=== PATIENT | male | born 1990 | race Caucasian/White ===

== ENCOUNTER 2019-02-02 18:05 | Observation (INO) | payer SELFPAY ==
[2019-02-02 18:54] LABS: Absolute Lymphocytes (CBC) 2.6 K/uL (0.7-4.9); Basophils % 0.5 % (0-1.3); Hematocrit 47.6 % (39.6-49.0); Lymphocytes % 20.3 % (15.3-44.8); MPV 10.4 fL (7.6-11.3)
[2019-02-02 19:02] LABS: Protime INR 1.17
[2019-02-02] MEDS ORDERED: ASPIRIN 81 MG CHEWABLE TABLET ONE (19:11)
[2019-02-02] MEDS ORDERED: NA CHLORIDE 0.9% 1,000 ML ONE (19:11)
[2019-02-02 19:14] LABS: ALT/SGPT 39 U/L (12-78); AST/SGOT 25 U/L (15-37); Albumin 4.7 g/dL (3.4-5.0); Alkaline Phosphatase 87 U/L (45-117); BUN Blood Urea Nitrogen 13 mg/dL (7-18); Bicarbonate 24 mmol/L (21-32); Bilirubin Direct 0.2 mg/dL (0-0.2); Bilirubin Total 0.7 mg/dL (0.2-1.0); Glucose Level 99 mg/dL (74-106); Magnesium 2.3 mg/dL (1.8-2.4); NT PRO-BNP 17 pg/mL (<125); Potassium 3.5 mmol/L (3.5-5.1); Protein, Total 8.8 g/dL (6.4-8.2); Sodium Level 140 mmol/L (136-145); Troponin (Emerg Dept Use Only) < 0.02 ng/mL (0.0-0.045)
--- NOTE | 2019-02-02 19:58 | RAD REPORT ---
EXAM DESCRIPTION: RAD - Chest Single View - 02/02/2019 7:02 pm CLINICAL HISTORY: Chest pain COMPARISON: None. TECHNIQUE: AP portable chest image was obtained 1848 hours . FINDINGS: Lungs are clear. Heart and vasculature are normal. No measurable pleural effusion and no p neumothorax. No acute bony abnormality seen. No acute aortic findings suspected. IMPRESSION: No acute cardiopulmonary process.
--- NOTE | 2019-02-02 20:58 | ER ---
Nurse's Notes [facility] Name: Caden Fenton Age: 28 yrs Sex: Male : 1990 Arrival Date: 02/02/2019 Time: 18:09 Bed 13 Private MD: Diagnosis: Chest pain, unspecified;Syncope and collapse Presentation: 02/02 18:10 Presenting complaint: Patient states: "I've been getting sharp chest pains, labored aj1 breathing, my finger tips feel tingly. I've collapsed twice. I don't know if its stress, but my family has a history of heart disease. My dad was my age when he found out he had a blockage in his heart" Reports that both times he had syncopal episodes he had palpitations, then got dizzy and passed out. Transition of care: patient was not received from another setting of care. Onset of symptoms was 2018. Risk Assessment: Do you want to hurt yourself or someone else? Patient reports no desire to harm self or others. Initial Sepsis Screen: Does the patient meet any 2 criteria? No. Patient's initial sepsis screen is negative. Does the patient have a suspected source of infection? No. Patient's initial sepsis screen is negative. Care prior to arrival: None. 18:10 Method Of Arrival: Ambulatory aj1 18:10 Acuity: ELIE 2 aj1 Triage Assessment: 18:13 General: Appears in no apparent distress. comfortable, Behavior is calm, cooperative, aj1 appropriate for age. Pain: Complains of pain in chest. Pain: Pain currently is 4 out of 10 on a pain scale. Neuro: Level of Consciousness is awake, alert, obeys commands. Cardiovascular: Patient's skin is warm and dry. Respiratory: Airway is patent Respiratory effort is even, unlabored, Respiratory pattern is regular, symmetrical. Historical: - Allergies: 18:13 No Known Allergies; aj1 - Home Meds: 18:13 None [Active]; aj1 - PMHx: 18:13 None; aj1 - PSHx: 18:13 None; aj1 - Immunization history:: Flu vaccine is not up to date. - Social history:: Smoking status: Patient/guardian denies using tobacco. - Ebola Screening: : No symptoms or risks identified at this time. Screenin:12 Abuse screen: Denies threats or abuse. Denies injuries from another. Nutritional ph screening: No deficits noted. Tuberculosis screening: No symptoms or risk factors identified. Fall Risk None identified. Assessment: 18:30 General: Appears in no apparent distress. comfortable, Behavior is cooperative, ph appropriate for age, anxious. Pain: Complains of pain in anterior aspect of left upper chest Pain does not radiate. Quality of pain is described as sharp. Neuro: Level of Consciousness is awake, alert, obeys commands, Oriented to person, place, time, situation, Reports dizziness, paresthesias in fingertips. Cardiovascular: Reports chest pain, lightheadedness, syncope, Capillary refill < 3 seconds in bilateral fingers Patient's skin is warm and dry. Respiratory: Airway is patent Respiratory effort is even, unlabored, Respiratory pattern is regular, symmetrical. Derm: Skin is intact, is healthy with good turgor, Skin is pink, warm \\T\\ dry. 19:30 General: Appears in no apparent distress. comfortable, Behavior is anxious. Pain: ea Denies pain. Neuro: Level of Consciousness is awake, alert, obeys commands, Oriented to person, place, time, situation. Neuro: Level of Consciousness is awake, alert, obeys commands, Oriented to person, place, time, situation. Cardiovascular: Patient's skin is warm and dry. Respiratory: Airway is patent Respiratory effort is even, unlabored, Respiratory pattern is regular, symmetrical. Derm: Skin is pink, warm \\T\\ dry. 20:43 Reassessment: Patient and/or family updated on plan of care and expected duration. Pain ea level reassessed. Patient is alert, oriented x 3, equal unlabored respirations, skin warm/dry/pink. 21:00 Reassessment: Patient and/or family updated on plan of care and expected duration. Pain ea level reassessed. Patient is alert, oriented x 3, equal unlabored respirations, skin warm/dry/pink. 23:20 Reassessment: Patient and/or family updated on plan of care and expected duration. Pain ea level reassessed. Patient is alert, oriented x 3, equal unlabored respirations, skin warm/dry/pink. Pt admitted, left ED via wheelchair per communications field technician. Pt tolerating well. Vital Signs: 18:13 BP 153 / 91; Pulse 101; Resp 20; Temp 98.7; Pulse Ox 97% on R/A; Weight 97.52 kg (R); aj1 Height 5 ft. 7 in. (170.18 cm) (R); Pain 4/10; 19:18 BP 130 / 78; Pulse 74; Resp 18; Pulse Ox 100% on R/A; ea 20:00 BP 126 / 81; Pulse 75; Resp 18; Pulse Ox 100% ; ea 21:30 BP 116 / 81; Pulse 63; Resp 18; Pulse Ox 98% on R/A; ea 22:15 BP 161 / 90; Pulse 63; Resp 18; Pulse Ox 99% ; ea 23:00 BP 111 / 76; Pulse 60; Resp 18; Temp 98.0; Pulse Ox 100% ; Pain 0/10; ea 18:13 Body Mass Index 33.67 (97.52 kg, 170.18 cm) aj1 ED Course: 18:09 Patient arrived in ED. mr 18:12 Vivian Pineda, VIANEY is [facility]. snw 18:12 aCrlos Palma MD is Attending Physician. snw 18:13 Triage completed. aj1 18:13 Arm band placed on Patient placed in an exam room. aj1 18:26 Yee Lopez, RN is Primary Nurse. ph 19:03 XRAY Chest (1 view) In Process Unspecified. EDMS 19:12 Inserted saline lock: 20 gauge in right antecubital area, using aseptic technique. ph Patient maintains SpO2 saturation greater than 95% on room air. 19:13 Patient has correct armband on for positive identification. Bed in low position. Call ph light in reach. Side rails up X 1. monitoring analyst on. Pulse ox on. NIBP on. Door closed. Noise minimized. Warm blanket given. Head of bed elevated. 20:56 Sylvie Giraldo MD is Hospitalizing Provider. snw 23:21 No provider procedures requiring assistance completed. Patient admitted, IV remains in ea place. Administered Medications: 19:20 Drug: NS 0.9% 1000 ml Route: IV; Rate: 75 ml/hr; Site: right antecubital; ea 19:21 Drug: Aspirin Chewable Tablet 324 mg Route: PO; ea 22:00 Follow up: Response: No adverse reaction ea Outcome: 20:57 Decision to Hospitalize by Provider. snw 21:00 Admitted to Med/surg accompanied by tech, via wheelchair, with chart, Report called to bhargav Fritz RN 21:00 Condition: stable 21:00 Instructed on the need for admit. 23:24 Patient left the ED. bhargav Signatures: Dispatcher [employer] EDPratibha Flores RN RN aj1 Vivian Pineda, ART HISTORY PROFESSOR-C ART HISTORY PROFESSOR-Csnw Mayuri Hu Yee Lopez RN RN ph Antunez, Elena, RN RN ea Corrections: (The following items were deleted from the chart) 23:24 22:15 BP 116 / 81; Pulse 63bpm; Resp 18bpm; Pulse Ox 98% RA; bhargav durant
--- NOTE | 2019-02-02 20:58 | EDPHYS ---
Physician Documentation [facility] Name: Caden Fenton Age: 28 yrs Sex: Male : 1990 Arrival Date: 02/02/2019 Time: 18:09 Bed 13 Private MD: ED Physician Carlos Palma HPI: 02/02 18:37 This 28 yrs old Male presents to ER via Ambulatory with complaints of Chest snw Pain. 18:37 The patient or guardian reports chest pain that is located primarily in the anterior snw chest wall, bilaterally. The pain does not radiate. Associated signs and symptoms: Pertinent positives: lightheadedness, nausea, palpitations, syncope. The chest pain is described as a heaviness. Duration: The patient or guardian reports multiple episodes, that wax and wane, with no pattern. Severity of pain: At its worst the pain was moderate. last week, Sat, and then again Saturday. The patient has not recently seen a physician. Historical: - Allergies: 18:13 No Known Allergies; aj1 - Home Meds: 18:13 None [Active]; aj1 - PMHx: 18:13 None; aj1 - PSHx: 18:13 None; aj1 - Immunization history:: Flu vaccine is not up to date. - Social history:: Smoking status: Patient/guardian denies using tobacco. - Ebola Screening: : No symptoms or risks identified at this time. ROS: 18:34 Constitutional: Negative for fever, chills, and weight loss, Eyes: Negative for injury, snw pain, redness, and discharge, ENT: Negative for injury, pain, and discharge, Neck: Negative for injury, pain, and swelling, Respiratory: Negative for shortness of breath, cough, wheezing, and pleuritic chest pain, Abdomen/GI: Negative for abdominal pain, nausea, vomiting, diarrhea, and constipation, Back: Negative for injury and pain, : Negative for injury, bleeding, discharge, and swelling, MS/Extremity: Negative for injury and deformity, Skin: Negative for injury, rash, and discoloration. 18:34 Cardiovascular: Positive for chest pain, palpitations. 18:34 Neuro: Positive for syncope. Exam: 18:33 Constitutional: This is a well developed, well nourished patient who is awake, alert, snw and in no acute distress. Head/Face: Normocephalic, atraumatic. Eyes: Pupils equal round and reactive to light, extra-ocular motions intact. Lids and lashes normal. Conjunctiva and sclera are non-icteric and not injected. Cornea within normal limits. Periorbital areas with no swelling, redness, or edema. ENT: Nares patent. No nasal discharge, no septal abnormalities noted. Tympanic membranes are normal and external auditory canals are clear. Oropharynx with no redness, swelling, or masses, exudates, or evidence of obstruction, uvula midline. Mucous membranes moist. Neck: Trachea midline, no thyromegaly or masses palpated, and no cervical lymphadenopathy. Supple, full range of motion without nuchal rigidity, or vertebral point tenderness. No Meningismus. right jvd Chest/axilla: Normal chest wall appearance and motion. Nontender with no deformity. No lesions are appreciated. Cardiovascular: Regular rate and rhythm with a normal S1 and S2. No gallops, murmurs, or rubs. Normal PMI, no JVD. No pulse deficits. Respiratory: Lungs have equal breath sounds bilaterally, clear to auscultation and percussion. No rales, rhonchi or wheezes noted. No increased work of breathing, no retractions or nasal flaring. Abdomen/GI: Soft, non-tender, with normal bowel sounds. No distension or tympany. No guarding or rebound. No evidence of tenderness throughout. Back: No spinal tenderness. No costovertebral tenderness. Full range of motion. Skin: Warm, dry with normal turgor. Normal color with no rashes, no lesions, and no evidence of cellulitis. MS/ Extremity: Pulses equal, no cyanosis. Neurovascular intact. Full, normal range of motion. Neuro: Awake and alert, GCS 15, oriented to person, place, time, and situation. Cranial nerves II-XII grossly intact. Motor strength 5/5 in all extremities. Sensory grossly intact. Cerebellar exam normal. Normal gait. Psych: Awake, alert, with orientation to person, place and time. Behavior, mood, and affect are within normal limits. Vital Signs: 18:13 BP 153 / 91; Pulse 101; Resp 20; Temp 98.7; Pulse Ox 97% on R/A; Weight 97.52 kg (R); aj1 Height 5 ft. 7 in. (170.18 cm) (R); Pain 4/10; 19:18 BP 130 / 78; Pulse 74; Resp 18; Pulse Ox 100% on R/A; ea 20:00 BP 126 / 81; Pulse 75; Resp 18; Pulse Ox 100% ; ea 21:30 BP 116 / 81; Pulse 63; Resp 18; Pulse Ox 98% on R/A; ea 22:15 BP 161 / 90; Pulse 63; Resp 18; Pulse Ox 99% ; ea 23:00 BP 111 / 76; Pulse 60; Resp 18; Temp 98.0; Pulse Ox 100% ; Pain 0/10; ea 18:13 Body Mass Index 33.67 (97.52 kg, 170.18 cm) aj1 MDM: 18:27 Patient medically screened. snw 20:55 Data reviewed: vital signs, nurses notes, lab test result(s), EKG, radiologic studies. snw Counseling: I had a detailed discussion with the patient and/or guardian regarding: the historical points, exam findings, and any diagnostic results supporting the discharge/admit diagnosis, the presence of at least one elevated blood pressure reading (>120/80) during this emergency department visit, lab results, radiology results, the need for further work-up and treatment in the hospital. Physician consultation: Sylvie Giraldo MD was called at 20:56, was contacted at 20:56, regarding admission, to the telemetry unit. 20:57 HEART Score: History: Moderately Suspicious (1), ECG: Non specific repolarization snw disturbance / LBTB / PM (1), Age: < or = 45 years (0), Risk Factors: No Risk Factors Known (0), Troponin: < or = 1 x Normal Limit (0), Total Score = 2. ED course: Positive strong family hx of early cardiac disease. 02/02 18:25 Order name: Basic Metabolic Panel; Complete Time: 19:23 snw 02/02 18:25 Order name: CBC with Diff; Complete Time: 19:04 snw 02/02 18:25 Order name: LFT's; Complete Time: 19:23 snw 02/02 18:25 Order name: Magnesium; Complete Time: 19:23 snw 02/02 18:25 Order name: NT PRO-BNP; Complete Time: 19:23 snw 02/02 18:25 Order name: PT-INR; Complete Time: 21:19 snw 02/02 18:25 Order name: Troponin (emerg Dept Use Only); Complete Time: 19:23 snw 02/02 21:06 Order name: D-Dimer; Complete Time: 21:19 EDMS 02/02 22:09 Order name: Basic Metabolic Panel EDMS 02/02 22:09 Order name: Basic Metabolic Panel EDOK 02/02 22:09 Order name: CBC with Automated Diff EDMS 02/02 22:09 Order name: CBC with Automated Diff EDMS 02/02 22:10 Order name: Lipid Profile EDMS 02/02 18:25 Order name: XRAY Chest (1 view); Complete Time: 20:05 snw 02/02 18:25 Order name: EKG; Complete Time: 18:26 snw 02/02 18:25 Order name: Cardiac monitoring; Complete Time: 19:21 snw 02/02 18:25 Order name: EKG - Nurse/Tech; Complete Time: 19:21 snw 02/02 18:25 Order name: IV Saline Lock; Complete Time: 19:22 snw 02/02 18:25 Order name: Labs collected and sent; Complete Time: 19:22 snw 02/02 22:09 Order name: Heart Healthy EDOK 02/02 22:09 Order name: Echo with Doppler EDOK 02/02 22:09 Order name: EKG Electrocardiogram EDOK 02/02 22:09 Order name: EKG Electrocardiogram EDOK 02/02 22:10 Order name: Lipid Profile EDOK 02/02 22:10 Order name: Troponin I EDOK 02/02 22:10 Order name: Troponin I EDOK 02/02 22:10 Order name: Troponin I EDOK 02/02 18:25 Order name: O2 Per Protocol; Complete Time: 19:22 snw 02/02 18:25 Order name: O2 Sat Monitoring; Complete Time: 20:06 snw Administered Medications: 19:20 Drug: NS 0.9% 1000 ml Route: IV; Rate: 75 ml/hr; Site: right antecubital; ea 19:21 Drug: Aspirin Chewable Tablet 324 mg Route: PO; ea 22:00 Follow up: Response: No adverse reaction ea Disposition: 02/03 21:52 Co-signature as Attending Physician, Carlos Palma MD I agree with the assessment and wa plan of care. Disposition: 02/02/19 20:57 Hospitalization ordered by Sylvie Giraldo for Observation. Preliminary diagnosis are Chest pain, unspecified, Syncope and collapse. - Bed requested for Telemetry/MedSurg (observation). - Status is Observation. ea - Condition is Stable. - Problem is new. - Symptoms are unchanged. UTI on Admission? No Signatures: Dispatcher [employer] [facility] Pratibha Persaud RN RN aj1 Vivian Pineda, OVEN LABORER-C OVEN LABORER-Csnw Yoon Gorman, RN RN Debra Jorgensen RN Carlos Pete ea, MD MD wa Corrections: (The following items were deleted from the chart) 02/02 21:06 20:55 D-DIMER+COAG.LAB.BRZ ordered. [facility] 22:24 20:57 Hospitalization Ordered by Sylvie Giraldo MD for Observation. Preliminary cg diagnosis is Chest pain, unspecified; Syncope and collapse. Bed requested for Telemetry/MedSurg (observation). Status is Observation. Condition is Stable. Problem is new. Symptoms are unchanged. UTI on Admission? No. snw 23:24 22:24 02/02/2019 20:57 Hospitalization Ordered by Sylvie Giraldo MD for Observation. ea Preliminary diagnosis is Chest pain, unspecified; Syncope and collapse. Bed requested for Telemetry/MedSurg (observation). Status is Observation. Condition is Stable. Problem is new. Symptoms are unchanged. UTI on Admission? No. cg
[2019-02-02] MEDS ORDERED: MORPHINE 4 MG/ML SYR IV PRN (22:04)
[2019-02-02] MEDS ORDERED: ALPRAZOLAM 0.25 MG TABLET PO PRN (22:04)
[2019-02-02] MEDS ORDERED: ACETAMINOPHEN 500 MG TAB PO PRN (22:04)
[2019-02-02 23:40] VITALS: BMI 32.8
[2019-02-03 00:03] VITALS: O2SAT 95
[2019-02-03] MEDS ORDERED: INFLUENZA VACCINE (for 3y+) 0.5 ML DOSE IMVAC ONE (00:08)
[2019-02-03 05:40] LABS: Absolute Lymphocytes (CBC) 2.6 K/uL (0.7-4.9); Basophils % 0.6 % (0-1.3); Lymphocytes % 34.6 % (15.3-44.8); MPV 9.8 fL (7.6-11.3)
[2019-02-03 05:50] LABS: BUN Blood Urea Nitrogen 12 mg/dL (7-18); Bicarbonate 26 mmol/L (21-32); Glucose Level 100 mg/dL (74-106); HDL Cholesterol 41 mg/dL (40-60); LDL Cholesterol, Calculated 77 (<130); Potassium 3.5 mmol/L (3.5-5.1); Sodium Level 141 mmol/L (136-145); Troponin I < 0.02 ng/mL (0.0-0.045)
--- NOTE | 2019-02-03 08:49 | P.HP ---
Certification for Inpatient Patient admitted to: Observation With expected LOS: <2 Midnights Patient will require the following post-hospital care: None Practitioner: I am a practitioner with admitting privileges, knowledge of patient current condition, hospital course, and medical plan of care. Services: Services provided to patient in accordance with Admission requirements found in Title 42 Section 412.3 of the Code of Federal Regulations Patient History Date of Service: 02/02/19 Reason for admission: Chest pain rule out acute coronary syndrome History of Present Illness: Patient is a 28-year-old gentleman who came into the hospital after having some chest discomfort. He has been undergoing a lot of stress lately. He has also had 2 syncopal episodes. He does not feel like he was completely unresponsive. He does not really want to discuss the cause of stress. He has a strong family history with his father having heart disease at the age of 30. His family was concerned so they asked him to go to the ER for further evaluation. He says his father actually had a blockage when he was 30. Patient will be admitted to the hospital to be ruled out for acute coronary syndrome. If this is negative he will get a treadmill stress test. Allergies No Known Allergies Allergy (Unverified 02/02/19 22:33) Home Medications: NK [No Home Meds] 02/02/19 - Past Medical/Surgical History Has patient received pneumonia vaccine in the past: No Diabetic: No Past Medical History: Patient denies medical history Past Surgical History: Patient denies surgical history - Family History Father Family History: Reviewed- Non-Contributory - Social History Smoking Status: Never smoker Alcohol use: Yes CD- Drugs: No Caffeine use: No Place of Residence: Home Review of Systems 10-point ROS is otherwise unremarkable Physical Examination - Vital Signs Temperature: 97.7 F Blood Pressure: 115/81 Pulse: 58 Respirations: 18 Pulse Ox (%): 93 - Physical Exam General: Alert, In no apparent distress, Oriented x3 HEENT: Atraumatic, PERRLA, Mucous membr. moist/pink, EOMI, Sclerae nonicteric Neck: Supple, 2+ carotid pulse no bruit, No LAD, Without JVD or thyroid abnormality Respiratory: Clear to auscultation bilaterally, Normal air movement Cardiovascular: Regular rate/rhythm, Normal S1 S2, No murmurs Gastrointestinal: Normal bowel sounds, Soft and benign, Non-distended, No tenderness Musculoskeletal: No clubbing, No swelling, No tenderness Integumentary: No rashes Neurological: Normal gait, Normal speech, Normal strength at 5/5 x4 extr, Normal tone, Sensation intact, Cranial nerves 3-12 intact, Normal affect Lymphatics: No axilla or inguinal lymphadenopathy - Studies Laboratory Data (last 24 hrs) 02/02/19 18:35: PT 13.7 H, INR 1.17 02/02/19 18:35: WBC 12.7 H, Hgb 16.1, Hct 47.6, Plt Count 240 02/02/19 18:35: Sodium 140, Potassium 3.5, BUN 13, Creatinine 0.95, Glucose 99, Magnesium 2.3, Total Bilirubin 0.7, AST 25, ALT 39, Alkaline Phosphatase 87 Assessment & Plan - Problems (Diagnosis) (1) Chest pain, rule out acute myocardial infarction Current Visit: Yes Status: Acute - Plan 1. Serial troponins and EKG 2. Appreciate Cardiology consultation 3. Echocardiogram and stress test if cardiology is agreeable 4. Anti-platelet therapy, anti coagulation, beta-hussain, statin, and O2 as needed 5. IV morphine for pain 6. Nitro p.r.n. Discharge Plan: Home Plan to discharge in: 48 Hours - Advance Directives Does patient have a Living Will: No Does patient have a Durable POA for Healthcare: No - Code Status/Comfort Care Code Status Assessed: Yes Code Status: Full Code Critical Care: No Time Spent Managing PTS Care (In Minutes): 45
[2019-02-03] MEDS ORDERED: ASPIRIN EC 81 MG TAB PO SCH (09:00)
[2019-02-03] MEDS ORDERED: METOPROLOL TAR 50 MG TAB PO SCH (09:00)
[2019-02-03] MEDS ORDERED: ENOXAPARIN 40 MG/0.4 ML SQ SCH (09:00)
--- NOTE | 2019-02-03 12:21 | EKG ---
Test Date: 2019-02-02 Test Time: 20:41:36 Environmental Field Team Member: EA MEASUREMENT RESULTS: Intervals: Rate: 67 VA: 146 QRSD: 116 QT: 402 QTc: 424 Giddings: P: 65 VA: 146 QRS: 59 T: 48 INTERPRETIVE STATEMENTS: Normal sinus rhythm with sinus arrhythmia Incomplete right bundle branch block Cannot rule out Anterior infarct, age undetermined Abnormal ECG No previous ECG available for comparison Electronically Signed On 02-03-19 12:19:24 SENIOR PEOPLESOFT DEVELOPER by Lele Dillon
--- NOTE | 2019-02-03 13:02 | ECHO ---
HEIGHT: 5 ft 7 in WEIGHT: 210 lb 0 oz DATE OF STUDY: 02/03/[address]: Sylvie Giraldo MD 2-DIMENSIONAL: YES M.MODE: YES DOPPLER: YES COLOR FLOW: YES TDS: NO PORTABLE: NO DEFINITY: NO BUBBLE STUDY: NO DIAGNOSIS: CHEST PAIN CARDIAC HISTORY: CATHERIZATION: NO SURGERY: NO PROSTHETIC VALVE: NO PACEMAKER: NO MEASUREMENTS (cm) DIASTOLIC (NORMALS) SYSTOLIC (NORMALS) IVSd 0.9 (0.6-1.2) LA Diam 3.2 (1.9-4.0) LVEF 65% LVIDd 4.7 (3.5-5.7) LVIDs 3.0 (2.0-3.5) %FS 36% LVPWd 0.9 (0.6-1.2) Ao Diam 2.7 (2.0-3.7) 2 DIMENSIONAL ASSESSMENT: RIGHT ATRIUM: NORMAL LEFT ATRIUM: NORMAL RIGHT VENTRICLE: NORMAL LEFT VENTRICLE: NORMAL TRICUSPID VALVE: NORMAL MITRAL VALVE: NORMAL PULMONIC VALVE: NORMAL AORTIC VALVE: NORMAL PERICARDIAL EFFUSION: NONE AORTIC ROOT: NORMAL LEFT VENTRICULAR WALL MOTION: NORMAL. DOPPLER/COLOR FLOW: NORMAL. COMMENTS: NORMAL 2D ECHO WITH DOPPLER. NO WALL MOTION ABNORMALITY. NO MITRAL VALVE PROLAPSE. NO EFFUSION. TECHNOLOGIST: DIANA ARAUJO
--- NOTE | 2019-02-03 13:14 | TREADMILL ---
70% H.R.: 133 85% H.R.: 162 90% H.R.: 171 100% H.R.: 190 DX: CHEST PAIN Date of Study: 02/03/19 Ht: 5 7 Wt: 210 lb 0 oz Consulting Physician: YARELI MEDICATIONS: TYLENOL, XANAX, ASPIRIN, LOVENOX, LOPRESSOR HISTORY: 28 YEAR OLD MALE WITH COMPLAINTS OF CHEST PAIN. HIGH STRESS LIFESTYLE. FAMILY HISTORY OF CORONARY ARTERY DISEASE. PHYSICIAL EXAMINATION: RESTING B.P.: 120/77 RESTING H.R.: 56 RESTING EKG: NORMAL. PROTOCOL: FRANSISCO ROUTINE EXERCISE TIME: 11:02 MAXIMUM HEART RATE: 164 86 % OF PREDICTED B.P. AT PEAK STRESS: 144/107 RECOVERY 126/83 H.R. AT 1 MINUTE POST EXERCISE: 115 IMPRESSION: STRESS STOPPED DUE TO TARGET HEART RATE REACHED. NO SUPRA VENTRICULAR TACHYCARDIA, NO VENTRICULAR TACHYCARDIA, NO PREMATURE VENTRICULAR COMPLEXES. DENIED CHEST PAIN. NEGATIVE EXERCISE TOLERANCE TEST.
[2019-02-03 13:47] VITALS: BP 125/75; TEMP 98.3
== END 2019-02-03 13:58 | disposition home or self-care (01) ==
LOC: ER 18:05 → ERHOLD 22:31 → 2ND 23:06
PROVIDERS: ADMIT Hospitalist; ATTEND Hospitalist
DX: R07.9 Chest pain, unspecified (principal); Z28.21 Immunization not carried out because of patient refusal
CPT/HCPCS: 36415; 71045; 80048; 80061; 80076; 83735; 83880; 84484; 85025; 85379; 85610; 93005; 93017; 93306; 99285; G0378; J1650; J7030